=== PATIENT | male | born 1995 | race Caucasian/White ===

== ENCOUNTER 2018-03-12 17:38 | Emergency (ER) | payer SELFPAY ==
--- NOTE | 2018-03-12 17:59 | ED Physician Documentation ---
General Adult - HISTORIAN Historian: patient - HPI Stated Complaint: genital problem Chief Complaint: General Adult Onset: days ago Timing: still present Severity: moderate Further Comments: yes (Pt is a 22 yo male with c/o of ulcerations of his penis that he first noticed earlier this week. Pt states that he has a new partner and had unprotected sex with her after he first noticed the penile ulcerations. He claims that he had not had sex for 2 years prior to this recent episode. Pt may not be a reliable historian. 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 Pt has been a methamphetamine user.) - ROS CONST: no problems EYES/ENT: none CVS/RESP: none GI/: none MS/SKIN/LYMPH: other (penile lesions) - PAST HX Past History: asthma Surgeries/Procedures: other (cleft lip/palate repair) Allergies/Adverse Reactions: Allergies Allergy/AdvReac Type Severity Reaction Status Date / Time amoxicillin Allergy Verified 03/12/18 18:27 Home Medications: Ambulatory Orders Medication Instructions Recorded Albuterol Sulfate [Proair Hfa] 8.5 gm IH QID PRN 03/12/18 Cephalexin [Keflex] 500 mg PO Q8H #30 capsule 03/12/18 - SOCIAL HX Smoking History: cigarettes Drug Use: marijuana, methamphetamines - FAMILY HX Family History: No - VITAL SIGNS Vital Signs: Vital Signs Temp Pulse Resp BP Pulse Ox 118/62 04/04/15 19:58 - REVIEWED ASSESSMENTS Nursing Assessment Reviewed: Yes Vitals Reviewed: Yes Progress - Progress Progress: Rocephin 500 mg IM Azithromycin 1000 mg po Rx Keflex 500 mg po tid x 10 days for folliculitis. f/u primary provider or urology if sx persist; inform partner that she should be tx'd with abx also. (Pt agrees to have partner call ER today.) wound culture (as GC cx) - pending GC/chlamydia urine culture - pending Pt declines further STD testing. He states that has not had sexual contact for 2 yrs prior to last week and that his penile lesions appeared before this sexual encounter. ED Results Lab/Radiology - Orders Orders: ED Orders Category Date Time Status UA [URINALYSIS] Routine Lab 03/12/18 Ordered General Adult Physical Exam - PHYSICAL EXAM GENERAL APPEARANCE: mild distress (anxious) EENT: pharynx normal NECK: normal inspection, supple RESPIRATORY: no resp distress, chest non-tender, breath sounds normal CVS: reg rate & rhythm, heart sounds normal BACK: normal inspection, no CVA tenderness SKIN: other (multiple tender ulcerations, distal penis/foreskin; pt also has folliculitis at numerous sites on extremities.) EXTREMITIES: non-tender, normal range of motion, no evidence of injury NEURO: oriented X3, motor nml, sensation nml, other (mild anxiety) Discharge Clincal Impression: Genital disease, male Prescriptions: Cephalexin [Keflex] 500 mg PO Q8H #30 capsule Referrals: Primary Doctor,No [Primary Care Provider] - Condition: Stable Disposition: 01 HOME, SELF-CARE Decision to Admit: NO Decision Time: 18:52
[2018-03-12] MEDS ORDERED: AZITHROMYCIN 250 MG TABLET PO ONE (18:26)
[2018-03-12 18:33] VITALS: BP 141/80
[2018-03-13 07:34] LABS: APPEARANCE,URINE CLOUDY (CLEAR); COLOR,URINE AMBER (YELLOW); OCCULT BLOOD,URINE NEGATIVE (NEGATIVE)
== END 2018-03-12 19:22 | disposition home or self-care (01) ==
LOC: ED 17:38
DX: L66.4 Folliculitis ulerythematosa reticulata (principal); N48.5 Ulcer of penis
CPT/HCPCS: 81002; 87491; 87591; 96372; 99283; J0696

== ENCOUNTER 2018-03-15 00:09 | Emergency (ER) | payer SELFPAY | END 2018-03-15 01:15 | disposition left against medical advice (07) | LOC: ED 00:09 | DX: Z53.9 Procedure and treatment not carried out, unspecified reason (principal) ==